=== PATIENT | female | born 1960 | race Caucasian/White ===

== ENCOUNTER 2018-11-13 08:21 | Day surgery (SDC) | payer OTHER ==
[~2018-11-13 08:21] MED LIST: BACITRACIN 50000 UNIT VIAL ONE; CEFAZOLIN SODIUM 1 GM/VIAL ONE; DEXAMETHASONE 10 MG/ML VIAL ONE; EPINEPHRINE/PF 1 MG/ML AMP ONE; FENTANYL CITR 250 MCG/5 ML ONE; GENTAMICIN SULF 80 MG/2ML INJ ONE; LIDOCAINE 2% MPF 5 ML VIAL ONE; MIDAZOLAM HCL 2 MG/2 ML INJ ONE; Mastisol Adhesive Liq ONE; NA CHLORIDE 0.9% 0 ML ONE; NS 0.9% VIAL 0 ML ONE; ONDANSETRON 4 MG/2 ML VIAL ONE; PROPOFOL 200 MG/20 ML VIAL IV ONE; ROCURONIUM 50 MG/5 ML VIAL IV ONE; Ringers Lactate 1,000 ML IV ONE
[2018-11-13] MEDS ORDERED: Ringers Lactate 1,000 ML IV ONE ×2 (08:22→16:08)
--- OUTSIDE RECORDS SUMMARY | 2018-11-13 08:23 | XMS REPORT | Clinical Summary ---
:1960 Author Organization [place] [facility] Address [address] [place] [address] Care Team Providers Name Role Phone Shiela Ochoa MD Primary Care Provider Allergies Active Allergy Reactions Severity Noted Date Comments Clindamycin Itching, Rash, GI High 01/24/2017 Intolerance Iodine And Iodide Containing Hives, Rash Medium 09/18/2017 Products Latex Rash Medium 01/24/2017 Penicillins Hives High 01/24/2017 Shellfish Derived Anaphylaxis, Shortness Of High 05/03/2016 Breath, Rash Sulfa (Sulfonamide Anaphylaxis High 05/03/2016 Antibiotics) Medications Medication Sig Dispensed Refills Start End Date Status Date [id number] 1 capsule as 1 Active ine (FIORINAL) 50-325-40 needed. 6 mg per capsule metoprolol succinate XL Take 25 mg 10 Active (TOPROL-XL) 25 mg 24 hr by mouth 7 tablet once daily. simvastatin (ZOCOR) 20 Take 20 mg 3 Active MG tablet by mouth 7 nightly. metFORMIN (GLUCOPHAGE) Take 850 mg 3 Active 850 mg tablet by mouth 2 7 (two) times a day. ESTRACE 0.01 % (0.1 INSERT 2 G 42.5 g 3 Active mg/gram) vaginal INTO THE 7 creamIndications: VAGINA Menopausal symptoms DAILY. MAY USE 2-3 NIGHTS PER WEEK hydrOXYzine (ATARAX) 50 50 mg. 0 Active MG tablet 8 liraglutide 3 mg/0.5 mL Start with 4 Syringe 1 Active (18 mg/3 mL) pen 0.6 mg sq 8 injectorIndications: daily x 1 Obesity (BMI 30-39.9) week, then increase every week by 0.6mg daily until 3mg daily levothyroxine Take 1 90 tablet 1 Active (SYNTHROID, LEVOXYL) 88 tablet (88 8 mcg tablet mcg total) by mouth every morning. medroxyPROGESTERone TAKE 1 90 tablet 0 Active (PROVERA) 2.5 MG tablet TABLET EVERY 8 DAY fluticasone (FLONASE) 50 0 Active mcg/actuation nasal 8 spray montelukast (SINGULAIR) 0 Active 10 mg tablet 8 DULoxetine (CYMBALTA) 60 TAKE 1 30 capsule 2 Active MG capsule CAPSULE BY 8 MOUTH EVERY DAY clonAZEPAM (KlonoPIN) DISSOLVE ONE 30 tablet 0 12/09/19 Active 0.5 MG disintegrating TABLET BY 8 19 tablet MOUTH AT BEDTIME cyclobenzaprine Take 10 mg 6 08/13/20 Discontinued (FLEXERIL) 10 mg tablet by mouth 7 18 nightly. DULoxetine (CYMBALTA) 60 Take 60 mg 0 10/06/20 Discontinued MG capsule by mouth 18 daily. medroxyPROGESTERone TAKE 1 90 tablet 3 02/20/20 Discontinued (PROVERA) 2.5 MG tablet TABLET EVERY 7 18 DAY clonAZEPAM (KlonoPIN) TAKE 1 30 tablet 1 11/17/20 0.5 MG disintegrating TABLET BY 7 17 tablet MOUTH AT BEDTIME levothyroxine Take 1 30 tablet 2 12/15/19 Discontinued (SYNTHROID, LEVOXYL) 88 tablet (88 7 18 mcg tablet mcg total) by mouth every morning. phentermine 37.5 MG Take 1 30 capsule 1 11/24/19 capsuleIndications: capsule 7 18 Obesity (BMI 30-39.9) (37.5 mg total) by mouth every morning for 30 days. levothyroxine TAKE 1 30 tablet 2 03/24/20 Discontinued (SYNTHROID, LEVOXYL) 88 TABLET (88 8 18 mcg tablet MCG TOTAL) BY MOUTH EVERY MORNING. hydrOXYzine (ATARAX) 25 TAKE 1 30 tablet 0 01/15/20 Discontinued MG tablet TABLET AT 8 18 BEDTIME hydrOXYzine (ATARAX) 25 TAKE 1 30 tablet 0 02/28/20 Discontinued MG tablet TABLET AT 8 18 BEDTIME phentermine (ADIPEX-P) TAKE ONE 30 tablet 1 01/28/20 Discontinued 37.5 mg tablet TABLET BY 8 18 MOUTH EVERY MORNING clonAZEPAM (KlonoPIN) DISSOLVE 1 30 tablet 1 08/19/20 Discontinued 0.5 MG disintegrating TABLET BY 8 18 tablet MOUTH AT BEDTIME phentermine (ADIPEX-P) Take 1 30 tablet 0 02/28/20 Discontinued 37.5 mg tablet tablet (37.5 8 18 mg total) by mouth every morning for 30 days. medroxyPROGESTERone TAKE 1 90 tablet 0 06/01/20 Discontinued (PROVERA) 2.5 MG tablet TABLET EVERY 8 18 DAY prednisoLONE (PRELONE) 0 08/13/20 Discontinued 15 mg/5 mL syrup [address] 1 30 tablet 0 08/13/20 Discontinued (NITROSTAT) 0.4 MG SL tablet (0.4 8 18 tabletIndications: Other mg total) chest pain under the tongue every 5 (five) minutes as needed for chest pain. For a max of 3 doses levothyroxine TAKE 1 30 tablet 2 05/26/20 Discontinued (SYNTHROID, LEVOXYL) 88 TABLET (88 8 18 mcg tablet MCG TOTAL) BY MOUTH EVERY MORNING. clonAZEPAM (KlonoPIN) 0 11/09/20 Discontinued 0.5 MG disintegrating 8 18 tablet nitrofurantoin, Take 1 14 capsule 0 08/20/20 macrocrystal-monohydrate capsule (100 8 18 , (MACROBID) 100 MG mg total) by capsuleIndications: mouth 2 Urinary tract infection (two) times without hematuria, site a day for 7 unspecified days. clonAZEPAM (KlonoPIN) DISSOLVE ONE 30 tablet 0 10/02/201 12/20/20 Discontinued 0.5 MG disintegrating TABLET BY 8 18 tablet MOUTH AT BEDTIME ciprofloxacin HCl Take 1 6 tablet 0 09/04/20 (CIPRO) 250 MG tablet tablet (250 8 18 mg total) by mouth 2 (two) times a day for 3 days. Active Problems Problem Noted Date Obesity (BMI 30-39.9) 10/26/2017 Diverticulitis of intestine, part unspecified, without perforation or 2016 abscess without bleeding Pure hypercholesterolemia 07/05/2017 Pre-diabetes 07/05/2017 Menopausal symptoms 01/24/2017 High cholesterol Hypothyroid Encounters Date Type Specialty Care Team Description 11/06/2018 Refill Internal Medicine Shiela Ochoa MD 10/06/2018 Refill Internal Medicine Shiela Ochoa MD 10/01/2018 Office Visit Obstetrics and Brii Crump Well woman exam ( Primary Dx); Gynecology MD Jeanmarie Routine Papanicolaou smear; Encounter for screening for human papillomavirus (HPV) 09/01/2018 Orders Only Internal Medicine Shiela Ochoa MD 08/19/2018 Refill Internal Shiela Dhaliwal MD 08/13/2018 Office Visit Internal Medicine Shiela Ochoa, Urinary tract infection without hematuria, site unspecified (Primary Dx); Diarrhea, unspecified type 07/08/2018 Refill Internal Shiela Dhaliwal MD 06/01/2018 Refill Obstetrics and Brii Crump Gynecology MD Jaenmarie 05/26/2018 Refill Internal Medicine Desire Benson MA 03/24/2018 Refill Internal Shiela Dhaliwal MD 02/27/2018 Office Visit Internal Medicine Shiela Ochoa, Other chest pain (Primary Dx); Acquired hypothyroidism; Hyperglycemia; Obesity (BMI 30-39.9) 02/19/2018 Refill Obstetrics and Brii Crump Gynecology MD Jeanmarie 01/27/2018 Orders Only Internal Medicine Shiela Ochoa Acquired hypothyroidism (Primary Dx) 01/23/2018 Telephone Internal Medicine Shiela Ochoa MD 01/21/2018 Refill Internal Shiela Dhaliwal MD 01/15/2018 Refill Internal Shiela Dhaliwal MD 12/18/2017 Refill Internal Medicine Shiela Ochoa MD 12/15/2017 Refill Internal Medicine Shiela Ochoa MD after 11/12/2017 Immunizations Name Dates Previously Given Next Due INFLUENZA QUAD PF 10/25/2017 Family History Medical History Relation Name Comments Cancer Father Hyperlipidemia Father Cancer Maternal Grandmother breast Heart disease Maternal Grandmother Hypertension Maternal Grandmother Dementia Mother Kidney disease Mother Breast cancer Other unspecified aunt Stroke Paternal Grandfather Colon cancer Paternal Grandmother Relation Name Status Comments Father Maternal Grandmother Mother Other unspecified aunt Paternal Grandfather Paternal Grandmother Social History Tobacco Use Types Packs/Day Years Used Date Former Smoker Quit: 2004 Smokeless Tobacco: Never Used Comments: no Alcohol Use Drinks/Week oz/Week Comments Yes occationally Sex Assigned at Date Recorded Not on file Job Start Date Occupation Industry Not on file Not on file Not on file Travel History Travel Start Travel End No recent travel history available. Last Filed Vital Signs Vital Sign Reading Time Taken Blood Pressure 128/77 10/01/2018 9:47 AM [employer] Pulse 75 10/01/2018 9:47 AM [employer] Temperature 36.4 C (97.5 F) 08/13/2018 9:37 AM CDT Respiratory Rate - - Oxygen Saturation 98% 08/13/2018 9:37 AM CDT Inhaled Oxygen Concentration - - Weight 92.3 kg (203 lb 6.4 oz) 10/01/2018 9:47 AM [employer] Height 162.6 cm (5' 4") 10/01/2018 9:47 AM [employer] Body Mass Index 34.91 10/01/2018 9:47 AM [employer] Plan of Treatment Health Maintenance Due Date Last Done Comments SHINGLES VACCINES (1 of 2) 2011 INFLUENZA VACCINE 06/18/2018 10/25/2017 BREAST CANCER SCREENING 03/21/2019 03/21/2017, 01/13/2015 CERVICAL CANCER SCREENING 08/18/2020 08/18/2017, 12/23/2014 COLON CANCER SCREENING 11/18/2024 11/18/2014 Implants Implanted Type Area Bulk Plant Manager Device Shelf Model / Identifier Expiration Serial / Date Lot Reload Stapling - ETHICON 07/18/2020 [id number] / Implanted: Qty: 3 on 09/20/2017 by Donnell Foster MD Endo ENDO- SURGERY / cutters, [id number] staplers, reloads Reload Stapling - ETHICON 06/17/2020 [id number] / Implanted: Qty: 3 on 09/20/2017 by Donnell Foster MD Endo ENDO- SURGERY / cutters, [id number] staplers, reloads Reload Stapling - ETHICON 05/17/2021 [id number] / Implanted: Qty: 2 on 09/20/2017 by Donnell Foster MD Endo ENDO- SURGERY / cutters, [id number] staplers, reloads Procedures Procedure Name Priority Date/Time Associated Diagnosis Comments HPV MRNA E6/E7 Routine 10/01/2018 9:59 Results for this REFLEX HPV 16, AM [employer] procedure are in 18/45 (REFLEX) the results section. THINPREP TIS PAP Routine 10/01/2018 9:59 Results for this AM [employer] procedure are in the results section. POC URINALYSIS Routine 08/13/2018 11:01 Urinary tract Results for this DIPSTICK AM CDT infection without procedure are in hematuria, site the results unspecified section. URINALYSIS, Routine 08/13/2018 10:16 Urinary tract Results for this COMPLETE, WITH AM CDT infection without procedure are in REFLEX TO CULTURE hematuria, site the results unspecified section. URINE CULTURE Routine 08/13/2018 10:16 Results for this AM CDT procedure are in the results section. OCCULT BLOOD, STOOL Routine 08/13/2018 10:01 Diarrhea, unspecified Results for this AM CDT type procedure are in the results section. FECAL LEUKOCYTES Routine 08/13/2018 10:01 Diarrhea, unspecified Results for this SMEAR AM CDT type procedure are in the results section. STOOL CULTURE Routine 08/13/2018 10:01 Diarrhea, unspecified Results for this AM CDT type procedure are in the results section. HEMOGLOBIN A1C Routine 02/27/2018 4:31 Hyperglycemia Results for this PM CDT procedure are in the results section. TSH REFLEX TO T4F Routine 02/27/2018 4:31 Acquired Results for this PM CDT hypothyroidism procedure are in the results section. ECG 12-LEAD Routine 02/27/2018 3:14 Other chest pain Results for this PM CDT procedure are in the results section. after 11/12/2017 Results HPV mRNA E6/E7 REFLEX HPV 16, 18/45 (10/01/2018 9:59 AM [employer]ACHINE) HPV mRNA e6/e7 Not Detected Not Detected [facility] Comment: This test was performed using the APTIMA HPV Assay ([employer] This assay detects E6/E7 viral messenger RNA (mRNA) from 14 high-risk HPV types (16,18,31,33,35,39,45,51,52,56,58,59,66,68). The analytical performance characteristics of this assay have been determined by [employer]. The modifications have not been cleared or approved by the FDA. This assay has been validated pursuant to the CLIA regulations and is used for clinical purposes. Resulting Agency Comment Performing Organization Information: Site ID: [id number] Name: [facility] Address: [address] [place] [phone] Director: Julia Dillon Performing Organization Address [facility] [place] [address] THINPREP TIS PAP (10/01/2018 9:59 AM [employer]ACHINE) Clinical information None given [facility] NEWBORN Date of last menstrual NONE GIVEN [facility] period NEWBORN Prev. pap: NONE GIVEN [facility] NEWBORN Prev. bx: NONE GIVEN [facility] NEWBORN Source Cervix [facility] Statement of adequacy [facility] Comment: NEWBORN Satisfactory for evaluation. Endocervical/transformation zone component present. Interpretation/result: Comment: Negative for [facility] intraepithelial lesion or NEWBORN malignancy. Comment [facility] Comment: NEWBORN This Pap test has been evaluated with computer assisted technology. Supervisor [employer] [facility] Comment: NEWBORN [facility], CT(ASCP) CT screening location: [place] [id number] Comment [facility] Comment: NEWBORN EXPLANATORY NOTE: The Pap is a screening test for cervical cancer. It is not a diagnostic test and is subject to false negative and false positive results. It is most reliable when a satisfactory sample, regularly obtained, is submitted with relevant clinical findings and history, and when the Pap result is evaluated along with historic and current clinical information. Resulting Agency Comment Performing Organization Information: Site ID: [id number] Name: [facility] Address: [address] [place] [phone] Director: Julia Dillon Performing Organization Address [facility] Phone Number [facility] [address] POC urinalysis dipstick (08/13/2018 11:01 AM CDT) Color urine, POC Yellow Clarity urine, POC Clear Glucose urine, POC Negative Negative Bilirubin urine, POC Negative Negative Ketones urine, POC Trace (A) Negative Specific gravity urine, POC 1.015 1.005 - 1.030 Blood urine, POC Large (A) Negative pH urine, POC 5.0 5.0, 5.5, 6.0, 6.5, 7.0, 7.5, 8.0, 8.5 Protein urine, POC Trace (A) Negative Urobilinogen urine, POC <2.0 <2.0 Nitrite urine, POC Negative Negative Leukocyte esterase urine, POC Small (A) Negative Specimen Urine URINALYSIS, COMPLETE, WITH REFLEX TO CULTURE (08/13/2018 10:16 AM CDT) Color, UA YELLOW YELLOW [facility] NEWBORN Appearance CLEAR CLEAR [facility] NEWBORN Specific gravity, urine 1.024 1.001 - 1.035 [facility] NEWBORN pH, urine < OR=5.0 5.0 - 8.0 [facility] NEWBORN Glucose, urine NEGATIVE NEGATIVE [facility] NEWBORN Bilirubin, UA NEGATIVE NEGATIVE [facility] NEWBORN Ketones, UA NEGATIVE NEGATIVE [facility] NEWBORN Occult blood, urine 1+ (A) NEGATIVE [facility] NEWBORN Protein, UA NEGATIVE NEGATIVE [facility] NEWBORN Nitrite, UA NEGATIVE NEGATIVE [facility] NEWBORN Leukocyte esterase, UA 1+ (A) NEGATIVE [facility] NEWBORN WBC, UA 6-10 (A) < OR=5 /HPF [facility] NEWBORN RBC, UA 3-10 (A) < OR=2 /HPF [facility] NEWBORN Squamous epithelial 0-5 < OR=5 /HPF [facility] cells, UA NEWBORN Bacteria, UA FEW (A) NONE SEEN /HPF [facility] NEWBORN Calcium oxalate MODERATE (A) NONE OR FEW /HPF [facility] crystals, UA NEWBORN Hyaline casts, UA NONE SEEN NONE SEEN /LPF [facility] NEWBORN Reflex CULTURE INDICATED - [facility] RESULTS TO FOLLOW NEWBORN Resulting Agency Comment Performing Organization Information: Site ID: [id number] Name: [facility] Address: [address] [place] [address] Director: Julia Dillon Performing Organization Address City/State/Zipcode Phone Number [employer] [address] [address] Urine culture (08/13/2018 10:16 AM CDT) Urine culture SEE NOTE [facility] NEWBORN Comment: CULTURE, URINE, ROUTINE MICRO NUMBER:[id number] TEST STATUS: FINAL SPECIMEN SOURCE: URINE SPECIMEN QUALITY:ADEQUATE RESULT:Multiple organisms present, each less than 10,000 CFU/mL. These organisms, commonly found on external and internal genitalia, are considered to be colonizers. No further testing performed. Resulting Agency Comment Performing Organization Information: Site ID: [id number] Name: [facility] Address: [address] [place] [phone] Director: Julia Dillon Performing Organization Address [facility] Phone Number [employer] [place] [phone] Occult blood, stool (08/13/2018 10:01 AM CDT) Fecal globin result SEE NOTE [facility] NEWBORN Comment: FECAL GLOBIN BY IMMUNOCHEMISTRY MICRO NUMBER:[id number] TEST STATUS: FINAL SPECIMEN SOURCE: INSURE () FOBT TEST CARD SPECIMEN QUALITY:ADEQUATE RESULT:Not Detected Specimen Stool Resulting Agency Comment Performing Organization Information: Site ID: [id number] Name: [facility] Address: [address] [place] [phone] Director: Julia Dillon Performing Organization Address [facility] [place] [address] Fecal leukocytes smear (08/13/2018 10:01 AM CDT) Fecal leukocytes SEE NOTE [facility] NEWBORN Comment: FECAL LEUKOCYTE STAIN MICRO NUMBER:[id number] TEST STATUS: FINAL SPECIMEN SOURCE: STOOL SPECIMEN QUALITY:ADEQUATE FECAL LEUKOCYTE: Not Detected Specimen Stool Resulting Agency Comment Performing Organization Information: Site ID: [id number] Name: [facility] Address: [address] [place] [phone] Director: Julia Dillon Performing Organization Address [facility] Phone Number [employer] [place] [phone] Stool culture (08/13/2018 10:01 AM CDT) Shiga toxin isolate SEE NOTE [facility] Comment: NEWBORN SHIGA TOXINS, EIA W/RFL TO E.COLI O157 CULTURE MICRO NUMBER:[id number] TEST STATUS: FINAL SPECIMEN SOURCE: STOOL SPECIMEN QUALITY:ADEQUATE RESULT:Not Detected Campylobacter culture SEE NOTE [facility] isolate Comment: ABDIEL CAMPYLOBACTER, CULTURE MICRO NUMBER:[id number] TEST STATUS: FINAL SPECIMEN SOURCE: STOOL SPECIMEN QUALITY:ADEQUATE RESULT:No enteric Campylobacter isolated Shiga toxin isolate SEE NOTE [facility] Comment: ABDIEL SALMONELLA AND SHIGELLA, CULTURE MICRO NUMBER:[id number] TEST STATUS: FINAL SPECIMEN SOURCE: STOOL SPECIMEN QUALITY:ADEQUATE RESULT:No Salmonella or Shigella isolated Specimen Stool Resulting Agency Comment Performing Organization Information: Site ID: [id number] Name: [facility] Address: [address] [place] [phone] Director: Julia Dillon Performing Organization Address [facility] [place] [address] TSH reflex to T4 (02/27/2018 4:31 PM CDT) TSH reflex to FT4 1.48 0.40 - 4.50 mIU/L [facility] NEWBORN Specimen Blood Resulting Agency Comment Performing Organization Information: Site ID: [id number] Name: [facility] Address: [address] [place] [phone] Director: Julia Dillon MD Performing Organization Address [facility] [place] [address] Hemoglobin A1c (02/27/2018 4:31 PM CDT) Hemoglobin A1C 5.4 <5.7 % of total Hgb [facility] NEWBORN Comment: For the purpose of screening for the presence of diabetes: <5.7% Consistent with the absence of diabetes 5.7-6.4%Consistent with increased risk for diabetes (prediabetes) > or=6.5%Consistent with diabetes This assay result is consistent with a decreased risk of diabetes. Currently, no consensus exists regarding use of hemoglobin A1c for diagnosis of diabetes in children. According to [place] Diabetes Association (ADA) guidelines, hemoglobin A1c <7.0% represents optimal control in non- diabetic patients. Different metrics may apply to specific patient populations. Standards of Medical Care in Diabetes(ADA). Specimen Blood Resulting Agency Comment Performing Organization Information: Site ID: [id number] Name: [facility] Address: [address] [place] [address] Director: Julia Dillon MD Performing Organization Address [facility] Phone Number [employer] NEWBORN [address] [place], [place] [phone] ECG 12 lead (02/27/2018 3:14 PM CDT) Ventricular rate 68 [facility] Atrial rate 68 [facility] IA interval 136 [facility] QRSD interval 78 [facility] QT interval 416 [facility] QTC interval 442 [facility] P axis 1 73 [facility] M[facility] QRS axis 1 -22 [facility] M[facility] T wave axis -16 [facility] MUSE EKG impression Normal sinus rhythm-Nonspecific ST and T wave abnormality- Abnormal ECG-In automated comparison with ECG of 20-SEP-2017 07:52,-Nonspecific T wave abnormality now evident in Anterior leads-Electronically [facility] MUSE Signed By Shiela Ochoa MD ([id number]) on 02/27/2018 4:25:45 PM Performing Organization Address [facility] Phone Number [employer] [address] [place] [address] after 11/12/2017 Insurance Payer Benefit Plan / Group Subscriber ID Type Phone Address AETNA ALLIED/AETNA SIG ADMIN xxxxxxxxx PPO Margaret Mejia Third Republican Self 1960 [id number] [address] (Home) A[place] [phone] CHRISTY SANTILLAN (Work) [phone] Advance Directives Patient has advance care planning documents, and code status on file. For more information, please contact:Abdiel Smith[address] [place] [address] Code Status Date Activated Date Inactivated Comments Full Code 09/20/2017 12:57 PM 09/22/2017 7:34 PM Code Status decision reached by: Patient
[2018-11-13 08:47] LABS: Absolute Lymphocytes (CBC) 1.6 K/uL (0.7-4.9); Absolute Monocytes 0.5 K/uL (0.1-1.3); Basophils % 1.4 % (0-1.3); Eosinophils % 2.3 % (0-4.4); Hematocrit 38.3 % (36.0-45.0); Lymphocytes % 24.4 % (15.3-44.8); MPV 8.2 fL (7.6-11.3); Monocytes % 8.6 % (3.3-12.3); RBC Red Blood Cell Count 4.51 M/uL (3.86-4.86)
[2018-11-13] MEDS ORDERED: CEFAZOLIN 1GM (PREMIX IV) 1 GM/50 ML BAG ONE (08:49)
[2018-11-13] MEDS ORDERED: SCOPOLAMINE HYDROBROMIDE PATCH TD ONE (08:49)
[2018-11-13] MEDS ORDERED: NA CHLORIDE 0.9% 1,000 ML ONE ×2 (08:49→14:46)
[2018-11-13 08:53] LABS: Urine Appearance CLEAR; Urine Bilirubin NEGATIVE (NEG); Urine Blood 2+ (NEG); Urine Color YELLOW; Urine Glucose NEGATIVE (NEG); Urine Protein NEGATIVE (NEG); Urine Specific Gravity 1.025 (1.005-1.030); Urine Urobilinogen 0.2 mg/dL (0.2-1.0)
--- NOTE | 2018-11-13 08:58 | EKG ---
Test Date: 2018-11-13 Test Time: 08:01:24 Compliance Review Specialist: SHIRA MEASUREMENT RESULTS: Intervals: Rate: 67 [place]: 132 QRSD: 78 QT: 406 QTc: 429 [place]: P: 41 [place]: 132 QRS: -18 T: 16 INTERPRETIVE STATEMENTS: Normal sinus rhythm Normal ECG No previous ECG available for comparison Electronically Signed On 11-13-18 08:57:40 [employer]LOBAL CONSUMER SECTOR VICE PRESIDENT by Bob Bradley
[2018-11-13 09:03] LABS: Urine Microscopic Reflex ORDER UMIC
[2018-11-13 09:23] LABS: Urine Bacteria <20 /HPF (<20); Urine Culture Reflex Order REFLEXED; Urine Mucus 1+ /HPF (NONE SEEN)
[2018-11-13] MEDS ORDERED: WATER FOR INJ,STERILE 10 ML ONE (09:48)
--- NOTE | 2018-11-13 09:52 | RAD REPORT ---
EXAM DESCRIPTION: Jose Miguel Roque (2 Views)11/13/2018 8:20 am CLINICAL HISTORY: Preop for breast surgery COMPARISON: None FINDINGS: The lungs appear clear of acute infiltrate. The heart is normal size IMPRESSION: No acute abnormalities displayed
[2018-11-13] MEDS ORDERED: GLYCOPYRROLATE 0.2 MG/ML SYR ONE (10:11)
[2018-11-13] MEDS ORDERED: EPHEDRINE SULF 50 MG/ML VIAL ONE ×2 (11:14→15:32)
[2018-11-13] MEDS ORDERED: FENTANYL CITR 100 MCG/2 ML ONE ×2 (11:45→14:04)
[2018-11-13] MEDS ORDERED: KETOROLAC 30 MG/ML INJ ONE (14:08)
[2018-11-13] MEDS ORDERED: Phenylephrine HCl 10 MG/ML 1 ML VIAL ONE (14:43)
[2018-11-13] MEDS ORDERED: EPINEPHRINE/PF 1 MG/ML AMP ONE (14:46)
[2018-11-13] MEDS ORDERED: MORPHINE 10 MG/ML VIAL ONE (14:54)
[2018-11-13] MEDS ORDERED: METOCLOPRAMIDE 10 MG/2mL INJ ONE (16:38)
[2018-11-13] MEDS ORDERED: HYDROCODONE/APAP 7.5/325 MG TAB PO ONE (19:00)
--- NOTE | 2018-11-16 11:37 | OP ---
Surgeon: Aly Ca MD [employer] Operator: Agustin. Preoperative Diagnoses: 1.Lipodystrophy of axilla, arms, breast descent. 2.Status post bilateral breast implants. Postoperative Diagnoses: 1.Lipodystrophy of axilla, arms, breast descent. 2.Status post bilateral breast implants. Procedures Performed: Breast lifts, explants, and liposuction of the arms and axilla. Anesthesia: General. Procedure In Detail: After satisfactory induction of general anesthesia, the chest was prepped with DuraPrep, and dry sterile drapes were applied in the usual manner. A 45 template was used to outline the right and left areolae. Then, transverse and curvilinear inferior incisions were made. The int ervening skin was de-epithelialized with EpiCut and dermabrader. The left side was done in an identi geraldine manner. We then elevated the flap to 1.6 cm in thickness toward the sternum, clavicle, and anter ior axillary line. This was done bilaterally, and then the inferior incisions were made. After this was done, an incision was made at the 12 o'clock position. Implants were removed. On the right asia e, the implant was intact and weighed 326 g. The left side was ruptured and weighed 300 g with porti ons that were adherent to the gauze . After this was done, the pockets were irrigated, and then the conization was performed on the right side using 2-0 PDS sutures to a formal cone. Then, s traps were elevated at 12 o'clock, 1:30, and 3 o'clock positions. Straps were then woven in and out of the pectoralis major muscle, back to the base of the cone, and themselves with 2-0 PDS. The 3 o'clock strap was sewn over the sternum at the 3 o'clock position with 2-0 Ethibond. Left si de was done in a mirror-image manner. The wounds were stapled shut. The patient was sat up __ later. The patient was returned supine , and then we irrigated with antibiotic solution . A #10 MOY was brought out from axilla, sewn in place with 2-0 silk, and wounds were closed with 3-0 Vicryl subcutaneous, 3 PDS running subcuticular tied from lateral to medial and medial to lateral an d tied in the vertical meridian of the breasts. The patient was then sat up. Site for new nipple-ar eolar complex was marked out. A 45-mm template was used. Tissue was cored out, nipple delivered, se wn with interrupted 4-0 PDS followed by 4-0 PDS running subcuticular. Attention was then turned to t he axilla and arms. The arms and chest were prepped with DuraPrep. Dry sterile drapes we re applied in the usual manner. Incision was performed incision in the right and left elb ows, and lateral chest was performed. The right arm had 400 in, the right axilla 150 in, the left arm 300 in, and left axilla 100 in. Aspiration was performed using 4-mm cannula. Right arm 400 cc out, right axilla 100 cc out, left axilla 200 out, and left arm was 550 out. The patient had applied, 5 x 5's, fluffs, and Iftikhar wrap over the breast lift incision after tincture of be nzoin and Steri-Strips were used. The patient tolerated the procedure well and returned to recovery. ANNMARIE/IGDEON Voice ID: [id number] Report ID: [id number]
== END 2018-11-13 18:10 | disposition home or self-care (01) ==
LOC: OR 08:21
PROVIDERS: ATTEND Specialist
PROC: 0J0F3ZZ Alteration of Left Upper Arm Subcutaneous Tissue and Fascia, Percutaneous Approach (ICD-10-PCS; 2018-11-13)
PROC: 0J0D3ZZ Alteration of Right Upper Arm Subcutaneous Tissue and Fascia, Percutaneous Approach (ICD-10-PCS; 2018-11-13)
PROC: 0H0V0ZZ Alteration of Bilateral Breast, Open Approach (ICD-10-PCS; 2018-11-13)
PROC: 0HPT0JZ Removal of Synthetic Substitute from Right Breast, Open Approach (ICD-10-PCS; principal; 2018-11-13 09:00)
PROC: 0HPU0JZ Removal of Synthetic Substitute from Left Breast, Open Approach (ICD-10-PCS; 2018-11-13 09:00)
DX: N64.81 Ptosis of breast (principal); T85.898A Other specified complication of other internal prosthetic devices, implants and grafts, initial encounter; E88.1 Lipodystrophy, not elsewhere classified; I10 Essential (primary) hypertension; E07.9 Disorder of thyroid, unspecified; E66.9 Obesity, unspecified; Z68.33 Body mass index [BMI] 33.0-33.9, adult; Z88.2 Allergy status to sulfonamides; Z91.040 Latex allergy status
CPT/HCPCS: 36415; 71046; 81003; 81015; 82962; 85025; 87086; 87088; 88305; 88331; 88333; 93005; J0171; J0690; J1100; J1580; J2250; J2370; J2405; J2704; J2765; J3010; J7030